=== PATIENT | male | born 1965 | race Caucasian/White ===

== ENCOUNTER 2017-11-26 14:49 | Emergency (ER) | payer OTHER ==
[2017-11-26] MEDS: DEXAMETHASONE 10 MG/ML 1 ML INJ IV (17:44)
[2017-11-26] MEDS: KETOROLAC 15 MG INJ IV (17:45)
[2017-11-26 17:54] LABS: URINE BLOOD (Dip) POC Trace-lysed (NEGATIVE); URINE GLUCOSE (Dip) POC Negative (NEGATIVE); URINE KETONES (Dip) POC Negative (NEGATIVE); URINE LEUKOCYTE EST (Dip) POC Negative (NEGATIVE); URINE NITRITE (Dip) POC Negative (NEGATIVE); URINE TOTAL PROTEIN POC Negative (NEGATIVE)
[2017-11-26] MEDS: morphine (ER) 30 MG TAB PO (19:22)
== END 2017-11-26 19:30 | disposition home or self-care (01) ==
LOC: FTE 14:49
DX: M54.5 Low back pain (principal); I10 Essential (primary) hypertension; F17.210 Nicotine dependence, cigarettes, uncomplicated
CPT/HCPCS: 72131; 81003; 96374; 96375; 99285-25